=== PATIENT | female | born 1940 | race Caucasian/White ===

== ENCOUNTER 2018-07-25 16:10 | Emergency (ER) | payer MEDICARE, BC ==
--- NOTE | 2018-07-25 16:37 | EDM.PDOC ---
ED HPI GENERAL MEDICAL PROBLEM - General Chief Complaint: ENT Problem Stated Complaint: NOSE BLEED Time Seen by Provider: 07/25/18 16:22 Source of Information: Reports: Patient, Family History Limitations: Reports: No Limitations - History of Present Illness INITIAL COMMENTS - FREE TEXT/NARRATIVE: 78-year-old female presents to the ED with bleeding from the left side of her nose. Patient states she had quite a bad nosebleed 2 days ago that started spontaneously. She was able to get it stopped with direct pressure. Today she felt that there was still plugged up in her nose and she was trying to blow it as well as did place her left small finger into her nose to remove foreign body and it started bleeding again. Was bleeding quite heavily through the nose and also down the back of her throat making her nauseated. She is on baby aspirin once daily no antiplatelet agents. No nasal trauma or surgery. 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 In.) - Related Data Allergies Allergy/AdvReac Type Severity Reaction Status Date / Time erythromycin base Allergy Cannot Verified 07/25/18 16:17 Remember Home Meds: Home Meds Aspirin 81 mg PO DAILY 02/02/18 [History] Calcium Carbonate [Calcium] 1 tab PO DAILY 02/02/18 [History] Cholecalciferol (Vitamin D3) [Vitamin D] 1 tab PO DAILY 02/02/18 [History] Diltiazem HCl [Cartia Xt] 120 mg PO DAILY 02/02/18 [History] Magnesium Oxide/Mag AA Chelate [Magnesium] 300 mg PO DAILY 02/02/18 [History] [place]-3 Fatty Acids [Maxepa] 1 tab PO DAILY 02/02/18 [History] Spironolactone [Aldactone] 12.5 mg PO DAILY 02/02/18 [History] Bacitracin/Polymyxin B Sulfate [Polysporin Ointment] 15 gm TP DAILY #1 tube 10/07 [Rx] Past Medical History HEENT History: Reports: Sinusitis Cardiovascular History: Reports: Hypertension 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: Endocrine/Metabolic History: Reports: Other (See Below) Other Endocrine/Metabolic History: Conn's syndrome - Past Surgical History GI Surgical History: Reports: Cholecystectomy Female Surgical History: Reports: Hysterectomy Social & Family History - Family History Family Medical History: Noncontributory - Tobacco Use Smoking Status *Q: Never Smoker - Caffeine Use Caffeine Use: Reports: None - Recreational Drug Use Recreational Drug Use: No - Living Situation & Occupation Living situation: Reports: Occupation: Retired ED ROS GENERAL - Review of Systems Review Of Systems: See Below Constitutional: Reports: No Symptoms HEENT: Reports: Nosebleed (Left side) Respiratory: Reports: No Symptoms Cardiovascular: Reports: No Symptoms Endocrine: Reports: No Symptoms GI/Abdominal: Reports: Nausea (From swallowed blood.) : Reports: Frequency, Incontinence (Some urge incontinence) Musculoskeletal: Reports: Joint Pain Skin: Reports: No Symptoms (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 The right side looks quite angry but there's been no recent bleeding. There was no ulcerations.) Throat/Mouth: Normal Inspection (She has mild active bleeding from the left anterior nasal septum. The right is angry in appearance but there is been no active bleeding.), Normal Lips, Normal Oropharynx, Other Head Exam: Atraumatic, Normocephalic (Peers to gone the clots out of the back of her throat.) Neck: Normal Inspection, Supple, Non-Tender, Full Range of Motion. No: Lymphadenopathy (L), Lymphadenopathy (R) Respiratory/Chest: No Respiratory Distress, Lungs Clear, Normal Breath Sounds, No Accessory Muscle Use Cardiovascular: Normal Peripheral Pulses, Regular Rate, Rhythm, No Edema, No Gallop, No Murmur, No Rub GI/Abdominal: Guarding Course - Vital Signs Last Recorded V/S: Last Vital Signs Temp 37.1 C 07/25/18 16:17 Pulse 88 07/25/18 16:17 Resp 17 07/25/18 16:17 BP 193/90 H 07/25/18 16:17 Pulse Ox 97 07/25/18 16:17 - Radiology Interpretation Free Text/Narrative:: 78-year-old female attends the ED with bleeding from the left nose for the last hour. She had a quite a bad bleed from the left side of her nose 2 days ago and got stopped on her own. Today she was trying to unplug the nose properly with clotted scab. She tried to blow it out first and it wouldn't come out and she used her left little finger to try and provide out and then bleeding started. On examination she has active bleeding coming from the left anterior nasal septum. He was treated with silver nitrate 6 different applications to try and bring it under control. I will review her in about 10 minutes time. - Re-Assessments/Exams Free Text/Narrative Re-Assessment/Exam: 07/25/18 16:48: On reinspection there is still one area in the very anterior aspect of the nose that was oozing slightly. I cauterized this area and bleeding seemed to come under good control. Patient be discharged to home not to touch her nose or blow out for the next 2 days. She is to apply Polysporin ointment into the nares on each side at bedtime for the next week. After this may use it Wednesdays and Sundays if the humidity in the outside air does not improve. Spring is on the way but is not quite sure yet. She will start to reuse her cool mist humidifier in her bedroom. She will return if there is any further nose bleeding. Departure - Departure Time of Disposition: 16:55 Disposition: Home, Self-Care 01 Condition: Fair Clinical Impression: Anterior epistaxis, Epistaxis - Discharge Information *PRESCRIPTION DRUG MONITORING PROGRAM REVIEWED*: Not Applicable *COPY OF PRESCRIPTION DRUG MONITORING REPORT IN PATIENT STEWART: Not Applicable Prescriptions: Bacitracin/Polymyxin B Sulfate [Polysporin Ointment] 15 gm TP DAILY #1 tube Instructions: Nosebleed, [id number] Referrals: Sukumar Varma MD [Primary Care Provider] - Forms: ED Department Discharge Additional Instructions: Evaluation in the emergency room this afternoon in regards to development of a recurrent left-sided nosebleed. Previous nosebleed 2 days ago. Aspect disruption of scab from the medial septum today that precipitated recurrence of nasal bleeding. Identified on examination the bleeding to be coming from the anterior nasal septum. It was cauterized in 4 different areas to bring the bleeding under control. He met at home is to use Polysporin ointment with aid of a Q-tip into each side of the nose almost filling the nose with the medication every night at bedtime for one week. As the ointment reaches body temperature it will melt and he'll build debris 3 year nose again. Putting a cool mist humidifier back in your bedroom for a couple more weeks would be a good idea as well. Of note you should expect the snuffles for the next hour or so since we cauterized the nose. This is a usually clear drainage with a bit of pink tinge to it due to blood within the floor of the nose. Is required after about an hour to an hour and a half. Return to the ED if any further nosebleeds occur.
== END 2018-07-25 17:10 | disposition home or self-care (01) ==
LOC: JD.ED 16:10
DX: R04.0 Epistaxis (principal); I10 Essential (primary) hypertension; Z88.0 Allergy status to penicillin; Z88.1 Allergy status to other antibiotic agents; Z79.899 Other long term (current) drug therapy
CPT/HCPCS: 30901; 99282; 99283

== ENCOUNTER 2019-04-26 18:19 | Day surgery (SDC) | payer MEDICARE, BC ==
[2019-04-26] MEDS ORDERED: Ondansetron 4 MG/2 ML SDV IVPUSH ONE (19:54)
--- NOTE | 2019-04-26 19:59 | EDM.PDOC ---
ED HPI GENERAL MEDICAL PROBLEM - General Chief Complaint: Abdominal Pain Stated Complaint: UPPER ABDOMINAL PAIN Time Seen by Provider: 04/26/19 18:41 Source of Information: Reports: Patient, Family (Daughter) History Limitations: Reports: No Limitations - History of Present Illness INITIAL COMMENTS - FREE TEXT/NARRATIVE: Mrs. Phelps is a very pleasant 38-year-old woman with a past medical history significant for hypertension, primary aldosteronism, paroxysmal atrial fibrillation, and anxiety, who states that she developed right upper and epigastric pain around 16:00 this afternoon. She is unable to characterize the pain, but states that it is constant. She feels better if she is in a curled up position. She developed some nausea and slight emesis while in the ED. No urinary symptoms. No recent fever. No prior similar symptoms. The patient states that she took an Ativan pill around 16:30, then 2 tablets of Tums around 17:30 to 18:00, without relief of her symptoms. The patient's last food was around noon, when she had some soup at our cafeteria , but she states that she vomited after eating the soup. With respect to the patient's paroxysmal atrial fibrillation, the patient is on diltiazem, but is not on any anticoagulant, following an episode of epistaxis. The patient's PCP is Dr. Sukumar Varma. 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 Right Abdominal Pain Score (Numeric/FACES): 7 - Related Data Allergies Allergy/AdvReac Type Severity Reaction Status Date / Time erythromycin base Allergy Cannot Verified 04/26/19 18:34 Remember Home Meds: Home Meds Aspirin 81 mg PO DAILY 02/02/18 [History] Calcium Carbonate [Calcium] 1 tab PO DAILY 02/02/18 [History] Cholecalciferol (Vitamin D3) [Vitamin D] 1 tab PO DAILY 02/02/18 [History] Diltiazem HCl [Cartia Xt] 120 mg PO DAILY 02/02/18 [History] Magnesium Oxide/Mag AA Chelate [Magnesium] 300 mg PO DAILY 02/02/18 [History] [place]-3 Fatty Acids [Maxepa] 1 tab PO DAILY 02/02/18 [History] Spironolactone [Aldactone] 12.5 mg PO DAILY 02/02/18 [History] Past Medical History Cardiovascular History: Reports: Afib (paroxysmal), Hypertension 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: Psychiatric History: Reports: Anxiety Endocrine/Metabolic History: Reports: Other (See Below) (Primary aldosteronism = Conn syndrome) - Past Surgical History HEENT Surgical History: Reports: Oral Surgery (2 wisdom teeth extracted), Other (See Below) (Excisioni of right branchial cleft cyst) GI Surgical History: Reports: Cholecystectomy (around 2005) Female Surgical History: Reports: D&C (x 1), Hysterectomy (partial) Social & Family History - Family History Family Medical History: Noncontributory - Tobacco Use Smoking Status *Q: Never Smoker - Caffeine Use Caffeine Use: Reports: None - Alcohol Use Alcohol Use History: No - Recreational Drug Use Recreational Drug Use: No - Living Situation & Occupation Living situation: Reports: , with Spouse Occupation: Retired ED ROS GENERAL - Review of Systems Review Of Systems: Comprehensive ROS is negative, except as noted in HPI. ED EXAM, GI/ABD - Physical Exam Exam: See Below Exam Limited By: No Limitations General Appearance: Alert, WD/WN, No Apparent Distress Eyes: Bilateral: Normal Appearance, EOMI Ears: Normal External Exam, Hearing Grossly Normal Nose: Normal Inspection Throat/Mouth: Normal Inspection, Normal Lips, Normal Voice, No Airway Compromise Head: Atraumatic, Normocephalic Neck: Normal Inspection, Full Range of Motion Respiratory/Chest: No Respiratory Distress, Lungs Clear, Normal Breath Sounds, No Accessory Muscle Use Cardiovascular: Normal Peripheral Pulses, Regular Rate, Rhythm, No Edema, No Gallop, No JVD, No Murmur, No Rub GI/Abdominal Exam: Normal Bowel Sounds, Soft, No Organomegaly, No Distention, No Abnormal Bruit, No Mass, Tender (Epigastrium and right lower quadrant only. Nontender elsewhere, including to the right upper quadrant.) (Female) Exam: Deferred Rectal (Female) Exam: Deferred Back Exam: Normal Inspection, Full Range of Motion. No: CVA Tenderness (L), CVA Tenderness (R) Extremities: Normal Inspection, Normal Range of Motion, No Pedal Edema, Normal Capillary Refill Neurological: Alert, Oriented, Normal Cognition, No Motor/Sensory Deficits Psychiatric: Normal Affect Skin Exam: Warm, Dry, Intact, Normal Color, No Rash Course - Vital Signs Last Recorded V/S: Last Vital Signs Temp 36.9 C 04/26/19 18:30 Pulse 86 04/26/19 18:30 Resp 16 04/26/19 18:30 BP 157/83 H 04/26/19 18:30 Pulse Ox 96 04/26/19 18:30 - Orders/Labs/Meds Orders: Active Orders 24 hr Category Date Time Status Patient Status [ADT] Routine ADT 04/27/19 05:43 Active EKG Documentation Completion [RC] ROUTINE Care 04/27/19 06:11 Active NPO Now [Nothing per Oral Now Diet] [DIET] Diet 04/27/19 Breakfast Active Abdomen Pelvis w Cont [CT] Stat Exams 04/26/19 19:54 Taken Lactated Ringers [Ringers, Lactated] 1,000 ml Med 04/26/19 23:00 Active IV ASDIRECTED Remove Patch Med 04/28/19 09:00 Active 1 ea TRDERM DAILY Schedule Procedure [COMM] Stat Oth 04/27/19 05:44 Ordered Medication Orders Lactated Ringer's (Ringers, Lactated) 1,000 mls @ 100 mls/hr IV ASDIRECTED ASIF Last Admin: 04/26/19 23:52 Dose: 100 mls/hr Miscellaneous Information (Remove Patch) 1 ea TRDERM DAILY [facility] Labs: Laboratory Tests 04/26/19 04/26/19 04/26/19 Range/Units 20:02 20:02 20:20 WBC 15.49 H (3.98-10.04) K/mm3 RBC 4.66 (3.98-5.22) M/mm3 Hgb 13.7 (11.2-15.7) gm/dl Hct 42.5 (34.1-44.9) % MCV 91.2 (79.4-94.8) fl MCH 29.4 (25.6-32.2) pg MCHC 32.2 (32.2-35.5) g/dl RDW Std Deviation 44.1 (36.4-46.3) fL Plt Count 292 (182-369) K/mm3 MPV 10.3 (9.4-12.3) fl Neutrophils % (Manual) 88 H (40-60) % Band Neutrophils % 1 (0-10) % Lymphocytes % (Manual) 8 L (20-40) % Atypical Lymphs % 0 % Monocytes % (Manual) 3 (2-10) % Eosinophils % (Manual) 0 L (0.7-5.8) % Basophils % (Manual) 0 L (0.1-1.2) Toxic Granulation Few Platelet Estimate Adequate RBC Morph Comment Normal Sodium 139 (136-145) mEq/L Potassium 4.2 (3.5-5.1) mEq/L Chloride 100 (98-107) mEq/L Carbon Dioxide 28 (21-32) mEq/L Anion Gap 15.2 H (5-15) BUN 22 H (7-18) mg/dL Creatinine 0.9 (0.55-1.02) mg/dL Est Cr Clr Drug Dosing 41.93 mL/min Estimated GFR (MDRD) > 60 (>60) mL/min BUN/Creatinine Ratio 24.4 H (14-18) Glucose 123 H (83-115) mg/dL Calcium 9.6 (8.5-10.1) mg/dL Total Bilirubin 0.6 (0.2-1.0) mg/dL AST 19 (15-37) U/L ALT 27 (14-59) U/L Alkaline Phosphatase 57 (46-116) U/L Total Protein 7.8 (6.4-8.2) g/dl Albumin 3.8 (3.4-5.0) g/dl Globulin 4.0 gm/dL Albumin/Globulin Ratio 1.0 (1-2) Lipase 96 (73-393) U/L Urine Color Yellow (Yellow) Urine Appearance Clear (Clear) Urine pH 6.0 (5.0-8.0) Ur Specific [place] > or = 1.030 (1.005-1.030) Urine Protein Negative (Negative) Urine Glucose (UA) Negative (Negative) Urine Ketones Negative (Negative) Urine Occult Blood Negative (Negative) Urine Nitrite Negative (Negative) Urine Bilirubin Negative (Negative) Urine Urobilinogen 0.2 (0.2-1.0) Ur Leukocyte Esterase Negative (Negative) Urine RBC 0-5 (0-5) /hpf Urine WBC 0-5 (0-5) /hpf Ur Squamous Epith Cells 0-5 (0-5) /hpf Urine Bacteria Few (FEW) /hpf Urine Mucus Moderate H (FEW) /hpf Meds: Medications Generic Name Dose Route Start Last Admin Trade Name Freq PRN Reason Stop Dose Admin Lactated Ringer's 1,000 mls @ 100 mls/hr 04/26/19 23:00 04/26/19 23:52 Ringers, Lactated IV 100 mls/hr ASDIRECTED ASIF Administration Miscellaneous Information 1 ea 04/28/19 09:00 Remove Patch TRDERM DAILY ASIF Discontinued Medications Generic Name Dose Route Start Last Admin Trade Name Shayna PRN Reason Stop Dose Admin Bupivacaine HCl/Epinephrine Bitart Confirm 04/27/19 06:17 Marcaine 0.5%/Epinephrine 1:200,000 Administered 04/27/19 06:18 Dose 50 ml .ROUTE .STK-MED ONE Dexamethasone Confirm 04/27/19 06:15 Dexamethasone Administered 04/27/19 06:16 Dose 20 mg .ROUTE .STK-MED ONE Diatrizoate Meglum/Diatrizoate Sod 90 ml 04/26/19 21:10 Gastrografin 37% PO 04/26/19 21:11 ONETIME ONE Fentanyl Confirm 04/27/19 06:15 Sublimaze Administered 04/27/19 06:16 Dose 250 mcg .ROUTE .STK-MED ONE Sodium Chloride 1,000 mls @ 150 mls/hr 04/26/19 20:00 04/26/19 20:10 Normal Saline IV 150 mls/hr ASDIRECTED ASIF Administration Piperacillin Sod/Tazobactam 100 mls @ 25 mls/hr 04/26/19 22:51 04/26/19 22:57 Sod 4.5 gm/ Sodium Chloride IV 04/27/19 02:50 25 mls/hr ONETIME STA Administration Lidocaine HCl Confirm 04/27/19 06:14 Xylocaine-Mpf 1% Administered 04/27/19 06:15 Dose 4 mls @ as directed .ROUTE .STK-MED ONE Lactated Ringer's Confirm 04/27/19 06:14 Ringers, Lactated Administered 04/27/19 06:15 Dose 1,000 mls @ as directed .ROUTE .STK-MED ONE Iopamidol 100 ml 04/26/19 21:10 Isovue-300 (61%) IVPUSH 04/26/19 21:11 ONETIME ONE Ketorolac Tromethamine Confirm 04/27/19 06:15 Toradol Administered 04/27/19 06:16 Dose 15 mg .ROUTE .STK-MED ONE Lorazepam 0.5 mg 04/26/19 23:47 04/26/19 23:52 Ativan PO 04/26/19 23:48 0.5 mg ONETIME ONE Administration Midazolam HCl Confirm 04/27/19 06:15 Versed 1 Mg/Ml Administered 04/27/19 06:16 Dose 2 mg .ROUTE .STK-MED ONE Ondansetron HCl 4 mg 04/26/19 19:54 04/26/19 20:11 Zofran IVPUSH 04/26/19 19:55 4 mg ONETIME ONE Administration Ondansetron HCl Confirm 04/27/19 06:14 Zofran Administered 04/27/19 06:15 Dose 4 mg .ROUTE .STK-MED ONE Propofol Confirm 04/27/19 06:15 Diprivan 20 Ml Administered 04/27/19 06:16 Dose 400 mg .ROUTE .STK-MED ONE Rocuronium [place] Confirm 04/27/19 06:14 Zemuron Administered 04/27/19 06:15 Dose 50 mg .ROUTE .STK-MED ONE Scopolamine 1.5 mg 04/27/19 06:34 Transderm-Scop TOP 04/27/19 06:35 ONETIME ONE - Re-Assessments/Exams Free Text/Narrative Re-Assessment/Exam: 04/26/19 19:56 While the patient's primary complaint is that of epigastric pain, on examination , she has tenderness to both her epigastrium as well as to her right lower quadrant, raising the possibility of acute appendicitis. I have ordered a workup that includes a lipase level, a urinalysis, and a CT scan of the abdomen and pelvis with oral and IV contrast. In the meantime, she will receive IV fluid and IV Zofran. The patient declined an offer for pain medication, but will let her nurse know if she changes her mind. 04/26/19 22:41 Contacted by the [facility] Radiologist at 22:40, who informed me that the patient has acute appendicitis. The appendix is retrocecal. There is no evidence of perforation. Formal report pending. 04/26/19 22:43 The patient's CBC is remarkable for a WBC count elevated at 15.49, but with 1% bandemia and 88% neutrophilia. The remainder of her CBC is unremarkable. Her CMP is remarkable for an anion gap slightly elevated at 15.2, but with a bicarbonate normal at 28. Her BUN is slightly elevated at 22, with a creatinine normal at 0.9. Her blood glucose is slightly elevated at 123. The remainder of her CMP is unremarkable. Her lipase is within normal limits at 96. Her urinalysis is unremarkable. 04/26/19 22:49 CT of the abdomen and pelvis with oral and IV contrast is read by [facility] as: 1. Acute appendicitis. There is no sign of appendiceal perforation or abscess. The appendix has a retrocecal location. 2. Diverticulum in the colon but no sign of acute diverticulitis. Case discussed with Dr. Pagan at 22:47. He would like us to place the patient into observation. He would like her to be started on Zosyn, and receive LR at 100 mL per hour. She is to be kept NPO. He will see her in the morning, with the intention of taking her to the OR at that time. Departure - Departure Time of Disposition: 22:55 Disposition: Refer to Observation Condition: Good Clinical Impression: Acute appendicitis - Discharge Information *PRESCRIPTION DRUG MONITORING PROGRAM REVIEWED*: Not Applicable *COPY OF PRESCRIPTION DRUG MONITORING REPORT IN PATIENT STEWART: Not Applicable Sepsis Event Note - Evaluation Sepsis Screening Result: No Definite Risk - Focused Exam Date Exam was Performed: 04/27/19 Time Exam was Performed: 06:47 - My Orders Last 24 Hours: My Active Orders 04/26/19 19:54 Abdomen Pelvis w Cont [CT] Stat 04/26/19 23:00 Lactated Ringers [Ringers, Lactated] 1,000 ml IV ASDIRECTED 04/27/19 05:43 Patient Status [ADT] Routine 04/27/19 05:44 Schedule Procedure [COMM] Stat 04/27/19 Breakfast NPO Now [Nothing per Oral Now Diet] [DIET] - Assessment/Plan Last 24 Hours: My Active Orders 04/26/19 19:54 Abdomen Pelvis w Cont [CT] Stat 04/26/19 23:00 Lactated Ringers [Ringers, Lactated] 1,000 ml IV ASDIRECTED 04/27/19 05:43 Patient Status [ADT] Routine 04/27/19 05:44 Schedule Procedure [COMM] Stat 04/27/19 Breakfast NPO Now [Nothing per Oral Now Diet] [DIET]
[2019-04-26] MEDS ORDERED: Sodium Chloride 0.9% 1,000 ML IV SCH (20:00)
[2019-04-26] MEDS ORDERED: Diatrizoate Meglumine/Diatrizoate Sodium 37% 120 ML Bottle PO ONE (21:10)
[2019-04-26] MEDS ORDERED: Iopamidol 612 MG/ML 100 ML Bottle IVPUSH ONE (21:10)
[2019-04-26] MEDS ORDERED: Piperacillin/Tazobactam 4.5 GM in Sodium Chloride 0.9% 100 ML IV STA (22:51)
[2019-04-26] MEDS ORDERED: LORazepam 0.5 MG Tab PO ONE (23:47)
[2019-04-26] MEDS: Lactated Ringers 1,000 ML IV SCH (23:52)
[2019-04-27] MEDS ORDERED: Ondansetron 4 MG/2 ML SDV ONE (06:14)
[2019-04-27] MEDS ORDERED: Lactated Ringers 1,000 ML ONE (06:14)
[2019-04-27] MEDS ORDERED: Lidocaine 1% 4 ML ONE (06:14)
[2019-04-27] MEDS ORDERED: Rocuronium 50 MG/5 ML Vial ONE (06:14)
[2019-04-27] MEDS ORDERED: fentaNYL 250 MCG/5 ML SDV ONE (06:15)
[2019-04-27] MEDS ORDERED: Midazolam 1 MG/ML 2 ML SDV ONE (06:15)
[2019-04-27] MEDS ORDERED: Dexamethasone 4 MG/ML 5 ML MDV ONE (06:15)
[2019-04-27] MEDS ORDERED: Ketorolac 15 MG/ML SDV ONE (06:15)
[2019-04-27] MEDS ORDERED: Propofol 200 MG/20 ML SDV ONE (06:15)
--- NOTE | 2019-04-27 06:15 | PCM.HP.2 ---
H&P History of Present Illness - General Date of Service: 04/27/19 Admit Problem/Dx: Admission Diagnosis/Problem Admission Diagnosis/Problem Appendicitis Source of Information: Patient History Limitations: Reports: No Limitations - History of Present Illness Onset of Symptoms: Reports: Unknown/Unsure Duration of Symptoms: Reports: Day(s): Location: Reports: Abdomen Quality: Reports: Ache, Pressure Severity: Moderate Improves with: Reports: Rest Context: Reports: Other Associated Symptoms: Reports: Nausea/Vomiting Right Abdominal Pain Score (Numeric/FACES): 7 - Related Data Allergies/Adverse Reactions: Allergies Allergy/AdvReac Type Severity Reaction Status Date / Time erythromycin base Allergy Cannot Verified 04/26/19 18:34 Remember Home Medications: Home Meds Aspirin 81 mg PO DAILY 02/02/18 [History] Calcium Carbonate [Calcium] 1 tab PO DAILY 02/02/18 [History] Cholecalciferol (Vitamin D3) [Vitamin D] 1 tab PO DAILY 02/02/18 [History] Diltiazem HCl [Cartia Xt] 120 mg PO DAILY 02/02/18 [History] Magnesium Oxide/Mag AA Chelate [Magnesium] 300 mg PO DAILY 02/02/18 [History] [place]-3 Fatty Acids [Maxepa] 1 tab PO DAILY 02/02/18 [History] Spironolactone [Aldactone] 12.5 mg PO DAILY 02/02/18 [History] Past Medical History HEENT History: Reports: Sinusitis Cardiovascular History: Reports: Afib (paroxysmal), Hypertension 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: Psychiatric History: Reports: Anxiety Endocrine/Metabolic History: Reports: Other (See Below) (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 - Past Surgical History HEENT Surgical History: Reports: Oral Surgery (2 wisdom teeth extracted), Other (See Below) (Excisioni of right branchial cleft cyst) GI Surgical History: Reports: Cholecystectomy (around 2005) Female Surgical History: Reports: D&C (x 1), Hysterectomy (partial) Social & Family History - Family History Family Medical History: Noncontributory - Tobacco Use Smoking Status *Q: Never Smoker - Caffeine Use Caffeine Use: Reports: None - Recreational Drug Use Recreational Drug Use: No - Living Situation & Occupation Living situation: Reports: , with Spouse Occupation: Retired H&P Review of Systems - Review of Systems: Review Of Systems: See Below General: Reports: No Symptoms HEENT: Reports: No Symptoms Pulmonary: Reports: No Symptoms Cardiovascular: Reports: No Symptoms Gastrointestinal: Reports: Abdominal Pain Genitourinary: Reports: No Symptoms Musculoskeletal: Reports: No Symptoms Skin: Reports: No Symptoms Psychiatric: Reports: No Symptoms Neurological: Reports: No Symptoms Hematologic/Lymphatic: Reports: No Symptoms Immunologic: Reports: No Symptoms Exam - Exam Exam: See Below - Vital Signs Vital Signs: Last Vital Signs Temp 36.9 C 04/26/19 18:30 Pulse 86 04/26/19 18:30 Resp 16 04/26/19 18:30 BP 157/83 H 04/26/19 18:30 Pulse Ox 96 04/26/19 18:30 Weight: 58.06 kg - Exam General: Alert, Oriented, Cooperative HEENT: Conjunctiva Clear Neck: Supple, Trachea Midline Lungs: Clear to Auscultation Cardiovascular: Regular Rate, Regular Rhythm GI/Abdominal Exam: Soft, Non-Tender, No Distention (Female) Exam: Deferred Rectal (Female) Exam: Deferred Extremities: Normal Inspection Peripheral Pulses: 2+: Radial (R) Skin: Warm, Dry Neuro Extensive - Mental Status: Alert, Oriented x3 Neuro Extensive - Motor, Sensory, Reflexes: Normal Gait Psychiatric: Alert, Normal Affect, Normal Mood - Patient Data Lab Results Last 24 hrs: Laboratory Results - last 24 hr 04/26/19 04/26/19 04/26/19 Range/Units 20:02 20:02 20:20 WBC 15.49 H (3.98-10.04) K/mm3 RBC 4.66 (3.98-5.22) M/mm3 Hgb 13.7 (11.2-15.7) gm/dl Hct 42.5 (34.1-44.9) % MCV 91.2 (79.4-94.8) fl MCH 29.4 (25.6-32.2) pg MCHC 32.2 (32.2-35.5) g/dl RDW Std Deviation 44.1 (36.4-46.3) fL Plt Count 292 (182-369) K/mm3 MPV 10.3 (9.4-12.3) fl Neutrophils % (Manual) 88 H (40-60) % Band Neutrophils % 1 (0-10) % Lymphocytes % (Manual) 8 L (20-40) % Atypical Lymphs % 0 % Monocytes % (Manual) 3 (2-10) % Eosinophils % (Manual) 0 L (0.7-5.8) % Basophils % (Manual) 0 L (0.1-1.2) Toxic Granulation Few Platelet Estimate Adequate RBC Morph Comment Normal Sodium 139 (136-145) mEq/L Potassium 4.2 (3.5-5.1) mEq/L Chloride 100 (98-107) mEq/L Carbon Dioxide 28 (21-32) mEq/L Anion Gap 15.2 H (5-15) BUN 22 H (7-18) mg/dL Creatinine 0.9 (0.55-1.02) mg/dL Est Cr Clr Drug Dosing 41.93 mL/min Estimated GFR (MDRD) > 60 (>60) mL/min BUN/Creatinine Ratio 24.4 H (14-18) Glucose 123 H (83-115) mg/dL Calcium 9.6 (8.5-10.1) mg/dL Total Bilirubin 0.6 (0.2-1.0) mg/dL AST 19 (15-37) U/L ALT 27 (14-59) U/L Alkaline Phosphatase 57 (46-116) U/L Total Protein 7.8 (6.4-8.2) g/dl Albumin 3.8 (3.4-5.0) g/dl Globulin 4.0 gm/dL Albumin/Globulin Ratio 1.0 (1-2) Lipase 96 (73-393) U/L Urine Color Yellow (Yellow) Urine Appearance Clear (Clear) Urine pH 6.0 (5.0-8.0) Ur Specific [place] > or = 1.030 (1.005-1.030) Urine Protein Negative (Negative) Urine Glucose (UA) Negative (Negative) Urine Ketones Negative (Negative) Urine Occult Blood Negative (Negative) Urine Nitrite Negative (Negative) Urine Bilirubin Negative (Negative) Urine Urobilinogen 0.2 (0.2-1.0) Ur Leukocyte Esterase Negative (Negative) Urine RBC 0-5 (0-5) /hpf Urine WBC 0-5 (0-5) /hpf Ur Squamous Epith Cells 0-5 (0-5) /hpf Urine Bacteria Few (FEW) /hpf Urine Mucus Moderate H (FEW) /hpf Result Diagrams: 01/06/20 20:02 04/26/19 20:02 Sepsis Event Note - Evaluation Sepsis Screening Result: No Definite Risk - Focused Exam Vital Signs: Vital Signs Temp Pulse Resp BP Pulse Ox 04/26/19 18:30 36.9 C 86 16 157/83 H 96 Date Exam was Performed: 04/27/19 Time Exam was Performed: 06:12 *Q Meaningful Use (ADM) - VTE Risk Assess *Q Each Risk Factor Represents 3 Points: Age 75 Years or Greater Total Score 3 Point Risk Factors: 3 Problem List Initiated/Reviewed/Updated: Yes Orders Last 24hrs: Active Orders 24 hr Category Date Time Status Patient Status [ADT] Routine ADT 04/27/19 05:43 Active EKG Documentation Completion [RC] ROUTINE Care 04/27/19 06:11 Active NPO Now [Nothing per Oral Now Diet] [DIET] Diet 04/27/19 Breakfast Active Abdomen Pelvis w Cont [CT] Stat Exams 04/26/19 19:54 Taken Lactated Ringers [Ringers, Lactated] 1,000 ml Med 04/26/19 23:00 Active IV ASDIRECTED Schedule Procedure [COMM] Stat Oth 04/27/19 05:44 Ordered Medication Orders Lactated Ringer's (Ringers, Lactated) 1,000 mls @ 100 mls/hr IV ASDIRECTED [facility] Last Admin: 04/26/19 23:52 Dose: 100 mls/hr Assessment/Plan Comment:: Acute appendicitis identified on CT- plan for laparoscopic appendectomy. - Mortality Measure Prognosis:: Good
[2019-04-27] MEDS ORDERED: Bupivacaine 0.5%/EPINEPHrine 1:200,000 50 ML MDV ONE (06:17)
[2019-04-27] MEDS ORDERED: Scopolamine 1.5 MG Transdermal Patch TOP ONE (06:34)
--- NOTE | 2019-04-27 07:22 | CT ---
CT abdomen and pelvis Technique: Multiple axial sections were obtained from above the dome of the diaphragm inferiorly through the pubic symphysis. Intravenous and oral contrast was utilized. Delayed images were also obtained through the bladder. Comparison: Previous MRI abdomen exam performed as an aortogram study dated 08/04/17. Findings: Appendix is dilated. Findings felt compatible with early appendicitis. Other findings: Visualized lung bases show nothing acute. Liver contains no focal abnormality. Small hiatal hernia is noted. Spleen appears within normal limits. Adrenal glands show no nodule. Extrarenal pelvis is noted within both kidneys which is felt to be a normal variant. Small cortical lesion is noted within the left kidney measuring 5 mm which is too small to characterize. Second cortical lesion noted within the upper left kidney measuring 5 mm which is too small to characterize. Both these findings are statistically most likely due to small cysts. Pancreas appears within normal limits. Aorta shows no aneurysm. No retroperitoneal adenopathy or mesenteric abnormalities are seen. No pelvic mass or adenopathy is seen. Diverticuli are seen within the sigmoid colon without evidence of diverticulitis. No free fluid is identified. Delayed images show contrast within the distal ureters and within the bladder. Bone window settings were reviewed which show degenerative change within the spine which is most severe at L4-L5 and L5-S1 with disc space narrowing and vacuum phenomena. Impression: 1. Enlarged appendix compatible with early appendicitis. 2. Other findings which are believed to be incidental as noted above. No other acute abnormality is appreciated on CT study of the abdomen and pelvis. Diagnostic code #5 This report was dictated in [place] Standard Time I agree with preliminary report from [facility], finalized on 04/26/19, 11:47 PM Central Time
[2019-04-27] MEDS ORDERED: ePHEDrine/Normal Saline 25 MG/5 ML Syringe ONE (07:25)
--- NOTE | 2019-04-27 07:30 | PCM.PREANE ---
Preanesthetic Assessment - Procedure Proposed Procedure: Laparoscopic Appendectomy - Anesthesia/Transfusion/Family Hx Anesthesia History: Prior Anesthesia Reaction Type of Anesthesia Reaction: Excessive Nausea/Vomiting Family History of Anesthesia Reaction: No - Review of Systems General: No Symptoms Pulmonary: No Symptoms Cardiovascular: Palpitations, Other (History of A fib. Palpatations. ) Gastrointestinal: Abdominal Pain, Nausea, Vomiting (Friday evening. ) Neurological: No Symptoms Other: Reports: None (Conns syndrome), Anxiety - Physical Assessment NPO Status Date: 04/26/19 NPO Status Time: 23:00 Vital Signs: Last Vital Signs Temp 36.9 C 04/26/19 18:30 Pulse 86 04/26/19 18:30 Resp 16 04/26/19 18:30 BP 157/83 H 04/26/19 18:30 Pulse Ox 96 04/26/19 18:30 Height: 1.6 m Weight: 58.06 kg ASA Class: 3 Mental Status: Alert & Oriented x3 Airway Class: Mallampati = 3 Dentition: Reports: Broken Tooth/Teeth Thyro-Mental Finger Breadths: 1 Mouth Opening Finger Breadths: 3 ROM/Head Extension: Full Lungs: Clear to Auscultation, Normal Respiratory Effort Cardiovascular: Regular Rate, Regular Rhythm - Lab Values: Laboratory Last Values WBC 15.49 K/mm3 (3.98-10.04) H 04/26/19 20:02 RBC 4.66 M/mm3 (3.98-5.22) 04/26/19 20:02 Hgb 13.7 gm/dl (11.2-15.7) 04/26/19 20:02 Hct 42.5 % (34.1-44.9) 04/26/19 20: MCV 91.2 fl (79.4-94.8) 04/26/19 20:02 MCH 29.4 pg (25.6-32.2) 04/26/19 20:02 MCHC 32.2 g/dl (32.2-35.5) 04/26/19 20:02 RDW Std Deviation 44.1 fL (36.4-46.3) 04/26/19 20:02 Plt Count 292 K/mm3 (182-369) 04/26/19 20:02 MPV 10.3 fl (9.4-12.3) 04/26/19 20:02 Neutrophils % (Manual) 88 % (40-60) H 04/26/19 20:02 Band Neutrophils % 1 % (0-10) 04/26/19 20:02 Lymphocytes % (Manual) 8 % (20-40) L 04/26/19 20:02 Atypical Lymphs % 0 % 04/26/19 20:02 Monocytes % (Manual) 3 % (2-10) 04/26/19 20:02 Eosinophils % (Manual) 0 % (0.7-5.8) L 04/26/19 20:02 Basophils % (Manual) 0 (0.1-1.2) L 04/26/19 20:02 Toxic Granulation Few 04/26/19 20:02 Platelet Estimate Adequate 04/26/19 20: RBC Morph Comment Normal 04/26/19 20: Sodium 139 mEq/L (136-145) 04/26/19 20:02 Potassium 4.2 mEq/L (3.5-5.1) 04/26/19 20:02 Chloride 100 mEq/L (98-107) 04/26/19 20:02 Carbon Dioxide 28 mEq/L (21-32) 04/26/19 20:02 Anion Gap 15.2 (5-15) H 04/26/19 20:02 BUN 22 mg/dL (7-18) H 04/26/19 20:02 Creatinine 0.9 mg/dL (0.55-1.02) 04/26/19 20:02 Est Cr Clr Drug Dosing 41.93 mL/min 04/26/19 20:02 Estimated GFR (MDRD) > 60 mL/min (>60) 04/26/19 20: BUN/Creatinine Ratio 24.4 (14-18) H 04/26/19 20:02 Glucose 123 mg/dL (83-115) H 04/26/19 20:02 Calcium 9.6 mg/dL (8.5-10.1) 04/26/19 20:02 Total Bilirubin 0.6 mg/dL (0.2-1.0) 04/26/19 20:02 AST 19 U/L (15-37) 04/26/19 20:02 ALT 27 U/L (14-59) 04/26/19 20:02 Alkaline Phosphatase 57 U/L (46-116) 04/26/19 20:02 Total Protein 7.8 g/dl (6.4-8.2) 04/26/19 20:02 Albumin 3.8 g/dl (3.4-5.0) 04/26/19 20:02 Globulin 4.0 gm/dL 04/26/19 20:02 Albumin/Globulin Ratio 1.0 (1-2) 04/26/19 20:02 Lipase 96 U/L (73-393) 04/26/19 20:02 Urine Color Yellow (Yellow) 04/26/19 20:20 Urine Appearance Clear (Clear) 04/26/19 20:20 Urine pH 6.0 (5.0-8.0) 04/26/19 20:20 Ur Specific [place] > or = 1.030 (1.005-1.030) 04/26/19 20:20 Urine Protein Negative (Negative) 04/26/19 20:20 Urine Glucose (UA) Negative (Negative) 04/26/19 20:20 Urine Ketones Negative (Negative) 04/26/19 20:20 Urine Occult Blood Negative (Negative) 04/26/19 20:20 Urine Nitrite Negative (Negative) 04/26/19 20:20 Urine Bilirubin Negative (Negative) 04/26/19 20:20 Urine Urobilinogen 0.2 (0.2-1.0) 04/26/19 20:20 Ur Leukocyte Esterase Negative (Negative) 04/26/19 20:20 Urine RBC 0-5 /hpf (0-5) 04/26/19 20:20 Urine WBC 0-5 /hpf (0-5) 04/26/19 20:20 Ur Squamous Epith Cells 0-5 /hpf (0-5) 04/26/19 20:20 Urine Bacteria Few /hpf (FEW) 04/26/19 20:20 Urine Mucus Moderate /hpf (FEW) H 04/26/19 20:20 - Allergies Allergies/Adverse Reactions: Allergies Allergy/AdvReac Type Severity Reaction Status Date / Time erythromycin base Allergy Cannot Verified 04/26/19 18:34 Remember - Anesthesia Plan Pre-Op Medication Ordered: Anxiolytic, Other (Scopalamine patch) - Acknowledgements Anesthesia Type Planned: General Anesthesia Pt an Appropriate Candidate for the Planned Anesthesia: Yes Alternatives and Risks of Anesthesia Discussed w Pt/Guardian: Yes Pt/Guardian Understands and Agrees with Anesthesia Plan: Yes PreAnesthesia Questionnaire HEENT History: Reports: Sinusitis Cardiovascular History: Reports: Afib (paroxysmal), Hypertension 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: Psychiatric History: Reports: Anxiety Endocrine/Metabolic History: Reports: Other (See Below) (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 - Past Surgical History HEENT Surgical History: Reports: Oral Surgery (2 wisdom teeth extracted), Other (See Below) (Excisioni of right branchial cleft cyst) GI Surgical History: Reports: Cholecystectomy (around 2005) Female Surgical History: Reports: D&C (x 1), Hysterectomy (partial) - SUBSTANCE USE Smoking Status *Q: Never Smoker Recreational Drug Use History: No - HOME MEDS Home Medications: Home Meds Aspirin 81 mg PO DAILY 02/02/18 [History] Calcium Carbonate [Calcium] 1 tab PO DAILY 02/02/18 [History] Cholecalciferol (Vitamin D3) [Vitamin D] 1 tab PO DAILY 02/02/18 [History] Diltiazem HCl [Cartia Xt] 120 mg PO DAILY 02/02/18 [History] Magnesium Oxide/Mag AA Chelate [Magnesium] 300 mg PO DAILY 02/02/18 [History] [place]-3 Fatty Acids [Maxepa] 1 tab PO DAILY 02/02/18 [History] Spironolactone [Aldactone] 12.5 mg PO DAILY 02/02/18 [History] - CURRENT (IN HOUSE) MEDS Current Meds: Current Medications Lactated Ringer's (Ringers, Lactated) 1,000 mls @ 100 mls/hr IV [facility] Last Admin: 04/26/19 23:52 Dose: 100 mls/hr Miscellaneous Information (Remove Patch) 1 ea TRDERM [facility]ILY [facility] Discontinued Medications Bupivacaine HCl/Epinephrine Bitart (Marcaine 0.5%/Epinephrine 1:200,000) Confirm Administered Dose 50 ml .ROUTE .STK-MED ONE Stop: 04/27/19 06:18 Dexamethasone (Dexamethasone) Confirm Administered Dose 20 mg .ROUTE .STK-MED ONE Stop: 04/27/19 06:16 Diatrizoate Meglum/Diatrizoate Sod (Gastrografin 37%) 90 ml PO ONETIME ONE Stop: 04/26/19 21:11 Fentanyl (Sublimaze) Confirm Administered Dose 250 mcg .ROUTE .ST-MED ONE Stop: 04/27/19 06:16 Sodium Chloride (Normal Saline) 1,000 mls @ 150 mls/hr IV ASDIRECTED ASIF Last Admin: 04/26/19 20:10 Dose: 150 mls/hr Piperacillin Sod/Tazobactam (Sod 4.5 gm/ Sodium Chloride) 100 mls @ 25 mls/hr IV ONETIME STA Stop: 04/27/19 02:50 Last Admin: 04/26/19 22:57 Dose: 25 mls/hr Lidocaine HCl (Xylocaine-Mpf 1%) Confirm Administered Dose 4 mls @ as directed .ROUTE .ST-MED ONE Stop: 04/27/19 06:15 Lactated Ringer's (Ringers, Lactated) Confirm Administered Dose 1,000 mls @ as directed .ROUTE .ST-MED ONE Stop: 04/27/19 06:15 Cefoxitin Sodium (Mefoxin In Dextrose,Iso-Osm 2 Gm/50 Ml) Confirm Administered Dose 50 mls @ as directed .ROUTE .[facility]-MED ONE Stop: 04/27/19 07:13 Iopamidol (Isovue-300 (61%)) 100 ml IVPUSH ONETIME ONE Stop: 04/26/19 21:11 Ketorolac Tromethamine (Toradol) Confirm Administered Dose 15 mg .ROUTE .ST- MED ONE Stop: 04/27/19 06:16 Lorazepam (Ativan) 0.5 mg PO ONETIME ONE Stop: 04/26/19 23:48 Last Admin: 04/26/19 23:52 Dose: 0.5 mg Midazolam HCl (Versed 1 Mg/Ml) Confirm Administered Dose 2 mg .ROUTE .ST-MED ONE Stop: 04/27/19 06:16 Ondansetron HCl (Zofran) 4 mg IVPUSH ONETIME ONE Stop: 04/26/19 19:55 Last Admin: 04/26/19 20:11 Dose: 4 mg Ondansetron HCl (Zofran) Confirm Administered Dose 4 mg .ROUTE .ST-MED ONE Stop: 04/27/19 06:15 Propofol (Diprivan 20 Ml) Confirm Administered Dose 400 mg .ROUTE .ST-MED ONE Stop: 04/27/19 06:16 Rocuronium [place] (Zemuron) Confirm Administered Dose 50 mg .ROUTE .STK-MED ONE Stop: 04/27/19 06:15 Scopolamine (Transderm-Scop) 1.5 mg TOP ONETIME ONE Stop: 04/27/19 06:35
--- NOTE | 2019-04-27 07:45 | PCM.PRNOTE ---
- Free Text/Narrative Note: Operative Report Operation: laparoscopic appendectomy Date: 04/27/2019 Attending Surgeon: Dru Pagan MD Indication for Surgery: appendicitis Preoperative antibiotics: cefoxitin VTE prophylaxis: SCDs Estimated Blood Loss: 5 cc Findings: Adhesions from ascending colon to anterior abdominal wall, with omentum adhesed to the right meso colon. Appendix appeared to have abnormal girth but did not seem inflamed. Detailed Report: The patient underwent general endotracheal anesthesia after being placed supine on the operating table and initial timeout. The left arm was tucked at the patients side. The abdomen was prepped and draped in sterile fashion. A pre- incision timeout was performed confirming the patients identity and the operation to be performed. A Veress needle was inserted into the abdominal cavity below the left costal margin along the mid-clavicular line. The abdomen was insufflated with CO2 to 15 mm Hg. Gas was aspirated below the umbilicus with a syringe in order to ensure safe placement of a 12 mm bladed laparoscopic port. The 5mm 30 degree laparoscope was then inserted and viscera inspected. The appendix appeared engorged but not grossly inflamed. Two additional 5 mm ports were placed under direct vision with the laparoscope one along the midline superior to the pubic symphysis and one in the left lower quadrant. The laparoscope was then placed through the left lower quadrant port for optimal visualization. The distal portion of the appendix was grasped with a laparoscopic Miguel clamp and retracted anteriorly and inferiorly. The [place] grasper was used to create a window in the mesoappendix where the appendix was seen coming off the cecum. A 45 mm laparoscopic stapler with white cartridge was used to divide the appendix flush with the base of the cecum. An additional staple fire was used to divide the mesentery supplying the appendix. This bled for a bit, but hemostasis was achieved with applied monopolar energy using the hook. The specimen was then placed in an Endocatch bag and removed through the umbilical port. The dissection field was irrigated and inspected and appeared hemostatic. The larger infraumbilical port was closed at the level of the fascia with vicryl suture using the PMI laparoscopic suture passer. Pneumoperitoneum was then released. All skin incisions were then closed with placement of subcuticular vicryl suture and dressed with dermabond. A total of 15 cc 0.5 % marcaine with epinephrine was used for local anesthesia at the incision sites. The patient tolerated the operation well, was extubated in the operating room and transferred to the PACU for routine post-anesthesia care. Dru Pagan MD General Surgery
[2019-04-27] MEDS ORDERED: fentaNYL 100 MCG/2 ML SDV IVPUSH PRN (08:04)
[2019-04-27] MEDS ORDERED: HYDROmorphone 0.5 MG/0.5 ML Syringe IVPUSH PRN (08:04)
[2019-04-27] MEDS ORDERED: Ondansetron 4 MG/2 ML SDV IVPUSH PRN (08:04)
--- NOTE | 2019-04-27 08:09 | PCM.POSTAN ---
POST ANESTHESIA ASSESSMENT - MENTAL STATUS Mental Status: Alert, Oriented - VITAL SIGNS Vital Signs: Last Vital Signs Temp 98.4 F 04/26/19 18:30 Pulse 86 04/26/19 18:30 Resp 16 04/26/19 18:30 BP 157/83 H 04/26/19 18:30 Pulse Ox 96 04/26/19 18:30 99% 17 88 97.8 107/83 - RESPIRATORY Respiratory Status: Respiratory Rate WNL, Airway Patent, O2 Saturation Stable, Supplemental Oxygen - CARDIOVASCULAR CV Status: Pulse Rate WNL, Blood Pressure Stable - GASTROINTESTINAL GI Status: No Symptoms - PAIN Pain Score: 6 (medicated) - POST OP HYDRATION Hydration Status: Adequate & Stable
[2019-04-27] MEDS: Acetaminophen 325 MG Tab PO ONE ×2 (09:19→13:25)
[2019-04-27] MEDS: Lactated Ringers 1,000 ML IV SCH (10:31)
== END 2019-04-27 14:45 | disposition home or self-care (01) ==
LOC: JD.ED 18:19 → JD.SDS 04-27 05:45
PROVIDERS: ATTEND Surgery
DX: D49.0 Neoplasm of unspecified behavior of digestive system (principal); K35.30 Acute appendicitis with localized peritonitis, without perforation or gangrene; I10 Essential (primary) hypertension; I48.0 Paroxysmal atrial fibrillation; F41.9 Anxiety disorder, unspecified; E26.09 Other primary hyperaldosteronism; Z88.1 Allergy status to other antibiotic agents; Z79.82 Long term (current) use of aspirin; Z79.899 Other long term (current) drug therapy
CPT/HCPCS: 36415; 44970; 74177; 80053; 81001; 83690; 85007; 85027; 93005; 96361; 96365; 96375; 99285; A9270; J0694; J1100; J1885; J2001; J2250; J2405; J2543; J2704; J3010; J3490; J7030; J7050; J7120; Q9963; 00840

== ENCOUNTER 2019-11-09 09:27 | Day surgery (SDC) | payer MEDICARE, BC ==
[~2019-11-09 09:27] MED LIST: Cefuroxime 10 MG/ML SYRINGE EYERT SCH; Lidocaine 1% PF 2 ML SDV INJECT SCH; Pilocarpine 4% Ophth Soln 15 ML Bot EYERT SCH
[2019-11-09] MEDS: Polymyxin B/Trimethoprim 10 ML Bottle EYERT SCH ×3 (10:06→11:47)
[2019-11-09] MEDS: Brimonidine 0.2% Ophth Soln 5 ML Bottle EYERT SCH ×3 (10:20→11:47)
[2019-11-09] MEDS: Phenylephrine 2.5% Ophth Soln 2 ML Bot EYERT SCH ×5 (10:26→11:29)
[2019-11-09] MEDS: Tropicamide 1% Ophth Soln 15 ML Bottle EYERT SCH ×4 (10:35→11:13)
--- NOTE | 2019-11-09 10:44 | PCM.PREANE ---
Preanesthetic Assessment - Procedure Proposed Procedure: Right Eye Cataract Extraction - Anesthesia/Transfusion/Family Hx Anesthesia History: Prior Anesthesia Reaction Type of Anesthesia Reaction: Excessive Nausea/Vomiting Family History of Anesthesia Reaction: No Transfusion History: Prior Transfusion Without Reaction Intubation History: Unknown - Review of Systems General: No Symptoms Pulmonary: No Symptoms Cardiovascular: No Symptoms (HTN) Gastrointestinal: No Symptoms, Constipation (occasional) Neurological: No Symptoms (Vertigo) Other: Reports: None (Decreased kidney function), Sinus Problem (chronic sinus issues), Anxiety - Physical Assessment NPO Status Date: 11/08/19 NPO Status Time: 21:30 Vital Signs: HR: 74 B/P: 138/78 Resp: 16 Temp: 97.6 Sat: 94% Height: 1.63 m Weight: 58.513 kg ASA Class: 2 Mental Status: Alert & Oriented x3 Airway Class: Mallampati = 2 Dentition: Reports: Normal Dentition, Caries Thyro-Mental Finger Breadths: 3 Mouth Opening Finger Breadths: 3 ROM/Head Extension: Full Lungs: Clear to Auscultation, Normal Respiratory Effort Cardiovascular: Regular Rate, Regular Rhythm, No Murmurs - Allergies Allergies/Adverse Reactions: Allergies Allergy/AdvReac Type Severity Reaction Status Date / Time erythromycin base Allergy Cannot Verified 11/08/19 10:56 Remember - Anesthesia Plan Pre-Op Medication Ordered: None - Acknowledgements Anesthesia Type Planned: MAC Pt an Appropriate Candidate for the Planned Anesthesia: Yes Alternatives and Risks of Anesthesia Discussed w Pt/Guardian: Yes Pt/Guardian Understands and Agrees with Anesthesia Plan: Yes PreAnesthesia Questionnaire HEENT History: Reports: Sinusitis Cardiovascular History: Reports: Afib (paroxysmal), Hypertension [employer]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: Psychiatric History: Reports: Anxiety Endocrine/Metabolic History: Reports: Other (See Below) (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 - Past Surgical History HEENT Surgical History: Reports: Oral Surgery (2 wisdom teeth extracted), Other (See Below) (Excisioni of right branchial cleft cyst) GI Surgical History: Reports: Cholecystectomy (around 2005) Female Surgical History: Reports: D&C (x 1), Hysterectomy (partial) - HOME MEDS Home Medications: Home Meds Spironolactone [Aldactone] 25 mg PO DAILY 02/02/18 [History] dilTIAZem HCL [Cartia Xt] 120 mg PO DAILY 02/02/18 [History] Glucosam/Chond-Msm1/C/Mike/Bor [[place]-Twxcw-MAV Complex Cplt] 1 tab PO DAILY 11/08/19 [History] - CURRENT (IN HOUSE) MEDS Current Meds: Current Medications Brimonidine Tartrate (Alphagan 0.2% Ophth Soln) 0 ml EYERT ASDIRECTED ASIF Stop: 11/09/19 18:00 Last Admin: 11/09/19 10:20 Dose: 1 drop Documented by: Cefuroxime Sodium (Zinacef) 0 mg EYERT ASDIRECTED [facility] Stop: 11/09/19 18:00 Lidocaine HCl (Xylocaine-Mpf 1%) 0 ml INJECT ASDIRECTED [facility] Stop: 11/09/19 18:00 Phenylephrine HCl ([place]el-Synephrine 2.5% Ophth Soln) 0 ml EYERT ASDIRECTED AS[facility] Stop: 11/09/19 18:00 Last Admin: 11/09/19 10:26 Dose: 1 drop Documented by: Pilocarpine HCl (Pilocar 4% Ophth Soln) 0 ml EYERT ASDIRECTED AS[facility] Stop: 11/09/19 18:00 Polymyxin/Trimethoprim Sulfate (Polytrim Ophth Soln) 0 ml EYERT ASDIRECTED ASIF Stop: 11/09/19 18:00 Last Admin: 11/09/19 10:06 Dose: 1 drop Documented by: Tetracaine HCl (Tetracaine 0.5% Steri-Unit Miryam) 0 ml EYEBOTH ASDIRECTED ASIF Stop: 11/09/19 18:00 Tropicamide (Mydriacyl 1% Ophth Soln) 0 ml EYERT ASDIRECTED ASIF Stop: 11/09/19 18:00
[2019-11-09] MEDS: Tetracaine HCl/PF 0.5% 4 ML Bottle EYEBOTH SCH ×2 (11:22→11:34)
--- NOTE | 2019-11-09 11:54 | PCM48HPAN ---
Post Anesthesia Note - EVALUATION WITHIN 48HRS OF ANESTHETIC Vital Signs in Normal Range: Yes Patient Participated in Evaluation: Yes Respiratory Function Stable: Yes Airway Patent: Yes Cardiovascular Function Stable: Yes Hydration Status Stable: Yes Pain Control Satisfactory: Yes Nausea and Vomiting Control Satisfactory: Yes Mental Status Recovered: Yes Vital Signs: 148/88, HR 73, RR 20 SpO2 98%, T: 97Last Vital Signs
== END 2019-11-09 12:00 | disposition home or self-care (01) ==
LOC: JD.SDS 09:27
PROVIDERS: ATTEND Ophthalmology
DX: H25.813 Combined forms of age-related cataract, bilateral (principal); H01.02B Squamous blepharitis left eye, upper and lower eyelids; H01.02A Squamous blepharitis right eye, upper and lower eyelids; H16.103 Unspecified superficial keratitis, bilateral; H16.223 Keratoconjunctivitis sicca, not specified as Sjogren's, bilateral; H02.831 Dermatochalasis of right upper eyelid; H02.834 Dermatochalasis of left upper eyelid; I10 Essential (primary) hypertension; Z88.1 Allergy status to other antibiotic agents; Z79.899 Other long term (current) drug therapy
CPT/HCPCS: 66984; C1780; J0697; J2001

== ENCOUNTER 2019-12-07 07:58 | Day surgery (SDC) | payer MEDICARE, BC ==
[2019-12-07] MEDS: Polymyxin B/Trimethoprim 10 ML Bottle EYELF SCH ×4 (08:10→10:12)
[2019-12-07] MEDS: Brimonidine 0.2% Ophth Soln 5 ML Bottle EYELF SCH ×4 (08:15→10:12)
[2019-12-07] MEDS: Phenylephrine 2.5% Ophth Soln 2 ML Bot EYELF SCH ×6 (08:20→09:51)
--- NOTE | 2019-12-07 08:21 | PCM.PREANE ---
Preanesthetic Assessment - Anesthesia/Transfusion/Family Hx Anesthesia History: Prior Anesthesia Reaction Transfusion History: Prior Transfusion Without Reaction Intubation History: Unknown - Review of Systems General: No Symptoms Pulmonary: No Symptoms Cardiovascular: No Symptoms Gastrointestinal: No Symptoms Neurological: No Symptoms Other: Reports: None - Physical Assessment NPO Status Date: 12/06/19 NPO Status Time: 21:30 Vital Signs: Last Vital Signs Temp 98.2 F 12/07/19 08:00 Pulse 77 12/07/19 08:00 Resp 16 12/07/19 08:00 BP 138/81 12/07/19 08:00 Pulse Ox 93 L 12/07/19 08:00 Height: 1.63 m Weight: 58.06 kg ASA Class: 2 Mental Status: Alert & Oriented x3 Airway Class: Mallampati = 2 Dentition: Reports: Normal Dentition (age appropriate) Thyro-Mental Finger Breadths: 3 Mouth Opening Finger Breadths: 3 ROM/Head Extension: Full Lungs: Clear to Auscultation, Normal Respiratory Effort Cardiovascular: Regular Rate, Regular Rhythm - Allergies Allergies/Adverse Reactions: Allergies Allergy/AdvReac Type Severity Reaction Status Date / Time erythromycin base Allergy Cannot Verified 11/09/19 11:07 Remember - Acknowledgements Anesthesia Type Planned: MAC Pt an Appropriate Candidate for the Planned Anesthesia: Yes Alternatives and Risks of Anesthesia Discussed w Pt/Guardian: Yes Pt/Guardian Understands and Agrees with Anesthesia Plan: Yes PreAnesthesia Questionnaire HEENT History: Reports: Cataract (rt cataract done October 2019), Sinusitis Cardiovascular History: Reports: Afib (paroxysmal), Hypertension Gastrointestinal History: Reports: Other (See Below) (constipation) 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: Psychiatric History: Reports: Anxiety Endocrine/Metabolic History: Reports: Other (See Below) (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 - Past Surgical History HEENT Surgical History: Reports: Oral Surgery (2 wisdom teeth extracted), Other (See Below) (Excisioni of right branchial cleft cyst) GI Surgical History: Reports: Cholecystectomy (around 2005) Female Surgical History: Reports: D&C (x 1), Hysterectomy (partial) - HOME MEDS Home Medications: Home Meds Spironolactone [Aldactone] 25 mg PO DAILY 02/02/18 [History] dilTIAZem HCL [Cartia Xt] 120 mg PO DAILY 02/02/18 [History] Glucosam/Chond-Msm1/C/Mike/Bor [Wcagavq-Nbkxp-CSZ Complex Cplt] 1 tab PO DAILY 11/08/19 [History] - CURRENT (IN HOUSE) MEDS Current Meds: Current Medications Brimonidine Tartrate (Alphagan 0.2% Ophth Soln) 0 ml EYELF ASDIRECTED ASIF Stop: 12/07/19 18:00 Cefuroxime Sodium (Zinacef) 0 mg EYELF ASDIRECTED ASIF Stop: 12/07/19 18:00 Lidocaine HCl (Xylocaine-Mpf 1%) 0 ml INJECT ASDIRECTED ASIF Stop: 12/07/19 18:00 Phenylephrine HCl (Ángel-Synephrine 2.5% Ophth Soln) 0 ml EYELF ASDIRECTED ASIF Stop: 12/07/19 18:00 Pilocarpine HCl (Pilocar 4% Ophth Soln) 0 ml EYELF ASDIRECTED ASIF Stop: 12/07/19 18:00 Polymyxin/Trimethoprim Sulfate (Polytrim Ophth Soln) 0 ml EYELF ASDIRECTED ASIF Stop: 12/07/19 18:00 Last Admin: 12/07/19 08:10 Dose: 1 drop Documented by: Tetracaine HCl (Tetracaine 0.5% Steri-Unit Miryam) 0 ml EYEBOTH ASDIRECTED ASIF Stop: 12/07/19 18:00 Tropicamide (Mydriacyl 1% Ophth Soln) 0 ml EYELF ASDIRECTED ASIF Stop: 12/07/19 18:00
[2019-12-07] MEDS: Tropicamide 1% Ophth Soln 15 ML Bottle EYELF SCH ×4 (08:26→09:05)
[2019-12-07] MEDS: Tetracaine HCl/PF 0.5% 4 ML Bottle EYEBOTH SCH ×6 (09:07→09:58)
[2019-12-07] MEDS: Cefuroxime 10 MG/ML SYRINGE EYELF SCH ×2 (09:35→10:11)
[2019-12-07] MEDS: Lidocaine 1% PF 2 ML SDV INJECT SCH ×2 (09:35→09:58)
[2019-12-07] MEDS: Pilocarpine 4% Ophth Soln 15 ML Bot EYELF SCH ×2 (09:36→10:12)
--- NOTE | 2019-12-07 10:14 | PCM48HPAN ---
Post Anesthesia Note - EVALUATION WITHIN 48HRS OF ANESTHETIC Vital Signs in Normal Range: Yes Patient Participated in Evaluation: Yes Respiratory Function Stable: Yes Airway Patent: Yes Cardiovascular Function Stable: Yes Hydration Status Stable: Yes Pain Control Satisfactory: Yes Nausea and Vomiting Control Satisfactory: Yes Mental Status Recovered: Yes Vital Signs: Last Vital Signs Temp 36.8 C 12/07/19 08:00 Pulse 77 12/07/19 08:00 Resp 16 12/07/19 08:00 BP 138/81 12/07/19 08:00 Pulse Ox 93 L 12/07/19 08:00
== END 2019-12-07 10:21 | disposition home or self-care (01) ==
LOC: JD.SDS 07:58
PROVIDERS: ATTEND Ophthalmology
DX: H25.812 Combined forms of age-related cataract, left eye (principal); H16.103 Unspecified superficial keratitis, bilateral; H02.831 Dermatochalasis of right upper eyelid; H02.834 Dermatochalasis of left upper eyelid; H11.153 Pinguecula, bilateral; I10 Essential (primary) hypertension; F41.9 Anxiety disorder, unspecified; Z96.1 Presence of intraocular lens; Z88.1 Allergy status to other antibiotic agents; Z79.899 Other long term (current) drug therapy
CPT/HCPCS: 66984; J0697; J2001; C1780

== ENCOUNTER 2020-04-01 12:41 | Emergency (ER) | payer MEDICARE, BC ==
[2020-04-01] MEDS ORDERED: Sodium Chloride 0.9% 10 ML Syringe FLUSH PRN (13:18)
[2020-04-01] MEDS ORDERED: Metoclopramide 10 MG/2 ML SDV IVPUSH ONE (13:18)
[2020-04-01] MEDS ORDERED: Sodium Chloride 0.9% 1,000 ML IV ONE (13:18)
--- NOTE | 2020-04-01 13:24 | EDM.PDOC ---
ED HPI GENERAL MEDICAL PROBLEM - General Chief Complaint: Gastrointestinal Problem Stated Complaint: COVID +/DIARRHEA /NAUSEA Time Seen by Provider: 04/01/20 12:47 Source of Information: Reports: Patient, RN Notes Reviewed History Limitations: Reports: No Limitations - History of Present Illness INITIAL COMMENTS - FREE TEXT/NARRATIVE: Patient is an 79-year-old female who presents to the ED for the evaluation of her diarrhea and nausea. Patient was diagnosed with Covid on Friday, and states she has been having symptoms since March 24. She notes that she has been extra careful about staying home, but she does account making 2 possible trips to [facility] that may have put her at risk. Patient notes she has not had any fevers or chills at home, and she is not developed any cough or shortness of breath, but she is having extreme nausea and diarrhea. She notes that her stools have become quite loose over the past day or 2. She is having a few stools per day, she is having no vomiting. She is having some muscle aches in her upper back that are somewhat bothersome and a slight dull headache other than this she is feeling okay. She notes that she has normal issues with constipation, so she is not surprised that she is having GI issues with this. She states that she has not had much of an appetite and has not been eating or drinking a whole lot either. Abdominal Pain Score (Numeric/FACES): 8 - Related Data Allergies Allergy/AdvReac Type Severity Reaction Status Date / Time erythromycin base Allergy Cannot Verified 04/01/20 13:02 Remember Home Meds: Home Meds Spironolactone [Aldactone] 25 mg PO DAILY 02/02/18 [History] dilTIAZem HCL [Cartia Xt] 120 mg PO DAILY 02/02/18 [History] Glucosam/Chond-Msm1/C/Mike/Bor [Oqajtph-Krjrq-WAG Complex Cplt] 1 tab PO DAILY 11/08/19 [History] Metoclopramide [Reglan] 10 mg PO QID PRN #20 cup 04/01/20 [Rx] Past Medical History HEENT History: Reports: Cataract (rt cataract done October 2019), Sinusitis Cardiovascular History: Reports: Afib (paroxysmal), Hypertension Gastrointestinal History: Reports: Other (See Below) (constipation) 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: Psychiatric History: Reports: Anxiety Endocrine/Metabolic History: Reports: Other (See Below) (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 - Past Surgical History HEENT Surgical History: Reports: Oral Surgery (2 wisdom teeth extracted), Other (See Below) (Excisioni of right branchial cleft cyst) GI Surgical History: Reports: Cholecystectomy (around 2005) Female Surgical History: Reports: D&C (x 1), Hysterectomy (partial) Social & Family History - Family History Family Medical History: No Pertinent Family History - Caffeine Use Caffeine Use: Reports: None - Living Situation & Occupation Living situation: Reports: , with Spouse Occupation: Retired ED ROS GENERAL - Review of Systems Review Of Systems: Comprehensive ROS is negative, except as noted in HPI. ED EXAM, GI/ABD - Physical Exam Exam: See Below Exam Limited By: No Limitations General Appearance: Alert, WD/WN, No Apparent Distress Respiratory/Chest: No Respiratory Distress, Lungs Clear, Normal Breath Sounds, No Accessory Muscle Use, Chest Non-Tender Cardiovascular: Normal Peripheral Pulses, Regular Rate, Rhythm, No Murmur GI/Abdominal Exam: Normal Bowel Sounds, Soft, Non-Tender, No Distention, No Mass Neurological: Alert, Oriented, Normal Cognition, No Motor/Sensory Deficits Psychiatric: Normal Affect, Normal Mood Skin Exam: Warm, Dry, Intact, Normal Color, No Rash Course - Vital Signs Last Recorded V/S: Last Vital Signs Temp 98.3 F 04/01/20 12:53 Pulse 85 04/01/20 12:53 Resp 16 04/01/20 12:53 BP 150/79 H 04/01/20 12:53 Pulse Ox 97 04/01/20 12:53 - Orders/Labs/Meds Orders: Active Orders 24 hr Category Date Time Status Peripheral IV Care [RC] . DIRECTED Care 04/01/20 13:18 Active Sodium Chloride 0.9% [Saline Flush] Med 04/01/20 13:18 Active 10 ml FLUSH ASDIRECTED PRN Peripheral IV Insertion Adult [OM.PC] Routine Oth 04/01/20 13:18 Ordered Medication Orders Sodium Chloride (Saline Flush) 10 ml FLUSH ASDIRECTED PRN PRN Reason: Keep Vein Open Last Admin: 04/01/20 13:27 Dose: 10 ml Documented by: BENJAMIN Labs: Laboratory Tests 04/01/20 04/01/20 Range/Units 13:29 13:29 WBC 4.62 (3.98-10.04) K/mm3 RBC 4.80 (3.98-5.22) M/mm3 Hgb 14.0 (11.2-15.7) gm/dl Hct 43.3 (34.1-44.9) % MCV 90.2 (79.4-94.8) fl MCH 29.2 (25.6-32.2) pg MCHC 32.3 (32.2-35.5) g/dl RDW Std Deviation 42.9 (36.4-46.3) fL Plt Count 287 (182-369) K/mm3 MPV 9.8 (9.4-12.3) fl Neut % (Auto) 70.4 (34.0-71.1) % Lymph % (Auto) 16.5 L (19.3-51.7) % Holmes % (Auto) 12.3 (4.7-12.5) % Eos % (Auto) 0.4 L (0.7-5.8) Baso % (Auto) 0.2 (0.1-1.2) % Neut # (Auto) 3.25 (1.56-6.13) K/mm3 Lymph # (Auto) 0.76 L (1.18-3.74) K/mm3 Holmes # (Auto) 0.57 H (0.24-0.36) K/mm3 Eos # (Auto) 0.02 L (0.04-0.36) K/mm3 Baso # (Auto) 0.01 (0.01-0.08) K/mm3 Sodium 130 L (136-145) mEq/L Potassium 4.0 (3.5-5.1) mEq/L Chloride 96 L (98-107) mEq/L Carbon Dioxide 26 (21-32) mEq/L Anion Gap 12.0 (5-15) BUN 8 (7-18) mg/dL Creatinine 1.1 H (0.55-1.02) mg/dL Est Cr Clr Drug Dosing 33.74 mL/min Estimated GFR (MDRD) 48 (>60) mL/min BUN/Creatinine Ratio 7.3 L (14-18) Glucose 129 H (83-115) mg/dL Calcium 9.1 (8.5-10.1) mg/dL Magnesium 1.8 (1.8-2.4) mg/dl Total Bilirubin 0.6 (0.2-1.0) mg/dL AST 45 H (15-37) U/L ALT 71 H (14-59) U/L Alkaline Phosphatase 51 (46-116) U/L Total Protein 7.5 (6.4-8.2) g/dl Albumin 3.6 (3.4-5.0) g/dl Globulin 3.9 gm/dL Albumin/Globulin Ratio 0.9 L (1-2) Meds: Medications Generic Name Dose Route Start Last Admin Trade Name Freq PRN Reason Stop Dose Admin Sodium Chloride 10 ml 04/01/20 13:18 04/01/20 13:27 Saline Flush FLUSH 10 ml ASDIRECTED PRN Administration Keep Vein Open Discontinued Medications Generic Name Dose Route Start Last Admin Trade Name Freq PRN Reason Stop Dose Admin Sodium Chloride 1,000 mls @ 500 mls/hr 04/01/20 13:18 04/01/20 13:27 Normal Saline IV 04/01/20 15:17 500 mls/hr ONETIME ONE Administration Metoclopramide HCl 5 mg 04/01/20 13:18 04/01/20 13:27 Reglan IVPUSH 04/01/20 13:19 5 mg ONETIME ONE Administration - Re-Assessments/Exams Free Text/Narrative Re-Assessment/Exam: 04/01/20 13:23 Patient presents to the ED for her ongoing nausea and diarrhea with a Covid 19+ diagnosis. We will get her some IV fluids, 5 mg of Reglan for GI discomfort. And check some baseline labs. 04/01/20 15:34 Patient's sodium was mildly low, the fluid should help this. Patient was able to eat some Jell-O crackers and some water while being here, she still states she feels like she has somewhat of a knot in her stomach. But her nausea is better. We will try to discharge her home with general conservative recommendations. I do believe a portion of this is related to anxiety. Departure - Departure Time of Disposition: 15:35 Disposition: Home, Self-Care 01 Condition: Good Clinical Impression: Nausea, Diarrhea due to COVID-19 - Discharge Information *PRESCRIPTION DRUG MONITORING PROGRAM REVIEWED*: No *COPY OF PRESCRIPTION DRUG MONITORING REPORT IN PATIENT STEWART: No Prescriptions: Metoclopramide [Reglan] 10 mg PO QID PRN #20 cup PRN Reason: Nausea Instructions: Dehydration, Adult, [id number] Referrals: Sukumar Varma MD [Primary Care Provider] - Forms: ED Department Discharge Additional Instructions: You were seen in the ER today for your nausea and diarrhea with a diagnosis of COVID-19. Your oxygen levels were great at 97-98% on room air. Please try to increase your oral fluid intake, and eat multiple small meals throughout the day, to keep yourself healthy. You need to keep yourself nourished in order to fight off this disease. You can try a liquid diet like gatorade/powerade as well to get your electrolytes. You may take 500 mg Tylenol every hours 6 hours for pain/fever relief. Do not exceed 4000 mg Tylenol in a 24-hour time span. However, running a fever is your body's natural response to illness, and it allows the body to develop antibodies to disease, we are recommending trying to limit the use of Tylenol as much as possible to allow your body's natural immune response. You were given antinausea medications, please use 1 dose up to 4 times a day as needed for nausea purposes. Please be assured that you should be feeling better within a few days, from what we are seeing with this disease, the day 7 to 10-day range is usually the worst that people are feeling. Sepsis Event Note (ED) - Evaluation Sepsis Screening Result: No Definite Risk - Focused Exam Vital Signs: Vital Signs Temp Pulse Resp BP Pulse Ox 04/01/20 12:53 98.3 F 85 16 150/79 H 97 - My Orders Last 24 Hours: My Active Orders 04/01/20 13:18 Peripheral IV Care [RC] . DIRECTED Sodium Chloride 0.9% [Saline Flush] 10 ml FLUSH ASDIRECTED PRN Peripheral IV Insertion Adult [OM.PC] Routine - Assessment/Plan Last 24 Hours: My Active Orders 04/01/20 13:18 Peripheral IV Care [RC] . DIRECTED Sodium Chloride 0.9% [Saline Flush] 10 ml FLUSH ASDIRECTED PRN Peripheral IV Insertion Adult [OM.PC] Routine
== END 2020-04-01 15:56 | disposition home or self-care (01) ==
LOC: JD.ED 12:41
DX: U07.1 COVID-19 (principal); I48.91 Unspecified atrial fibrillation; I10 Essential (primary) hypertension; Z79.899 Other long term (current) drug therapy; Z88.1 Allergy status to other antibiotic agents
CPT/HCPCS: 36415; 80053; 83735; 85025; 96374; 99284; J2765; J7030

== ENCOUNTER 2020-09-12 08:36 | Day surgery (SDC) | payer MEDICARE, OTHER ==
[~2020-09-12 08:36] MED LIST changes: -Cefuroxime 10 MG/ML SYRINGE EYERT SCH; +Lactated Ringers 1,000 ML IV SCH; -Lidocaine 1% PF 2 ML SDV INJECT SCH; +Lidocaine 1%/Sod Bicarbonate in NS 8.4% 1 ML Syringe IDERM PRN; -Pilocarpine 4% Ophth Soln 15 ML Bot EYERT SCH; +Sodium Chloride 0.9% 10 ML Syringe FLUSH PRN
[2020-09-12] MEDS ORDERED: Scopolamine 1.5 MG Transdermal Patch TOP ONE (08:50)
[2020-09-12] MEDS ORDERED: Lactated Ringers 1,000 ML ONE (09:21)
[2020-09-12] MEDS ORDERED: ceFAZolin 1 GM Vial ONE (09:21)
[2020-09-12] MEDS ORDERED: Propofol 200 MG/20 ML SDV ONE ×2 (09:21→09:25)
[2020-09-12] MEDS ORDERED: Ondansetron 4 MG/2 ML SDV ONE (09:21)
[2020-09-12] MEDS ORDERED: Dexamethasone 4 MG/ML 5 ML MDV ONE (09:21)
[2020-09-12] MEDS ORDERED: Lidocaine 1% 4 ML ONE (09:21)
[2020-09-12] MEDS ORDERED: fentaNYL 250 MCG/5 ML SDV ONE (09:22)
[2020-09-12] MEDS ORDERED: Midazolam 1 MG/ML 2 ML SDV ONE (09:22)
[2020-09-12] MEDS ORDERED: Ketorolac 15 MG/ML SDV ONE (09:28)
[2020-09-12] MEDS ORDERED: Famotidine 20 MG/2 ML SDV IVPUSH ONE (09:36)
--- NOTE | 2020-09-12 09:48 | PCM.PREANE ---
Preanesthetic Assessment - Procedure Proposed Procedure: Colpocloisis - Anesthesia/Transfusion/Family Hx Anesthesia History: Prior Anesthesia Reaction Type of Anesthesia Reaction: Excessive Nausea/Vomiting Family History of Anesthesia Reaction: No Transfusion History: Prior Transfusion Without Reaction Intubation History: Unknown - Review of Systems General: No Symptoms Pulmonary: No Symptoms Cardiovascular: Other (Hypertension, History of AFib with palpatations, controlled with medication. ) Gastrointestinal: Other (Heart burn last evening. ) Neurological: Pre-Existing Deficit (Back pain with Sciatica bilateral legs) Other: Reports: None (Overactive adrenal gland, Conns Syndrome. ), Anxiety - Physical Assessment NPO Status Date: 09/11/20 NPO Status Time: 21:30 Weight: 57 kg Mental Status: Alert & Oriented x3 Airway Class: Mallampati = 3 Dentition: Reports: Caries Thyro-Mental Finger Breadths: 1 Mouth Opening Finger Breadths: 3 ROM/Head Extension: Full Lungs: Clear to Auscultation, Normal Respiratory Effort Cardiovascular: Regular Rate, Regular Rhythm - Imaging/EKG Impressions: SR at 73 bpm, consider atrial enlargement. - Allergies Allergies/Adverse Reactions: Allergies Allergy/AdvReac Type Severity Reaction Status Date / Time erythromycin base Allergy Cannot Verified 09/12/20 09:06 Remember - Blood Blood Available: No Product(s) Available: None - Anesthesia Plan Pre-Op Medication Ordered: Anxiolytic, Other (Scopalamine Patch, Famotadine. ) - Acknowledgements Anesthesia Type Planned: General Anesthesia Pt an Appropriate Candidate for the Planned Anesthesia: Yes Alternatives and Risks of Anesthesia Discussed w Pt/Guardian: Yes Pt/Guardian Understands and Agrees with Anesthesia Plan: Yes PreAnesthesia Questionnaire HEENT History: Reports: Cataract, Sinusitis Cardiovascular History: Reports: Afib, Hypertension, Other (See Below) Other Cardiovascular History: varicose vein Respiratory History: Reports: None Gastrointestinal History: Reports: Other (See Below) Other Gastrointestinal History: post op nausea and vomiting Genitourinary History: Reports: Other (See Below) Other Genitourinary History: cystocele III, pelvic organ prolapse, rectocele, vaginal atrophy 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: Musculoskeletal History: Reports: Back Pain, Chronic Neurological History: Reports: None Psychiatric History: Reports: Anxiety Endocrine/Metabolic History: Reports: Osteopenia, Other (See Below) Other Endocrine/Metabolic History: overactive adrenal gland Hematologic History: Reports: None Immunologic History: Reports: None Oncologic (Cancer) History: Reports: Basal Cell Carcinoma Dermatologic History: Reports: Other (See Below) Other Dermatologic History: right brachial cleft cyst removal, BCC with removal, mole removal - Infectious Disease History Infectious Disease History: Reports: None - Past Surgical History Head Surgeries/Procedures: Reports: None HEENT Surgical History: Reports: Cataract Surgery, Oral Surgery, Other (See Below) Cardiovascular Surgical History: Reports: None Respiratory Surgical History: Reports: None GI Surgical History: Reports: Cholecystectomy Female Surgical History: Reports: D&C, Hysterectomy, Oophorectomy Male Surgical History: Reports: None Endocrine Surgical History: Reports: None Neurological Surgical History: Reports: None Musculoskeletal Surgical History: Reports: None Oncologic Surgical History: Reports: None - SUBSTANCE USE Tobacco Use Status *Q: Never Tobacco User Recreational Drug Use History: No - HOME MEDS Home Medications: Home Meds Spironolactone [Aldactone] 25 mg PO DAILY 02/02/18 [History] dilTIAZem HCL [Cartia Xt] 120 mg PO DAILY 02/02/18 [History] Acetaminophen [Tylenol] 650 mg PO Q4H PRN 09/11/20 [History] Elderberry Fruit and Flower [Black Elderberry 575 mg Cap] 1 cap PO DAILY 09/11/20 [History] LORazepam [Ativan] 0.5 mg PO BID PRN 09/11/20 [History] Magnesium 250 mg PO DAILY 09/11/20 [History] Multivitamin 1 tab PO DAILY 09/11/20 [History] Zinc 50 mg PO DAILY 09/11/20 [History] - CURRENT (IN HOUSE) MEDS Current Meds: Current Medications Famotidine (Famotidine 20 Mg/2 Ml Sdv) 20 mg IVPUSH ONETIME ONE Stop: 09/12/20 09:37 Lactated Ringer's (Ringers, Lactated) 1,000 mls @ 125 mls/hr IV ASDIRECTED ASIF Stop: 09/12/20 23:00 Last Admin: 09/12/20 08:50 Dose: 125 mls/hr Documented by: Lidocaine/Sodium Bicarbonate (Lidocaine 1%/Sod Bicarbonate In Ns 8.4% 1 Ml Syringe) 0.25 ml IDERM ONETIME PRN PRN Reason: Prior to IV Start Stop: 09/12/20 18:00 Last Admin: 09/12/20 08:50 Dose: 0.25 ml Documented by: Sodium Chloride (Sodium Chloride 0.9% 10 Ml Syringe) 10 ml FLUSH ASDIRECTED PRN PRN Reason: Keep Vein Open Stop: 09/12/20 18:00 Discontinued Medications Cefazolin Sodium (Cefazolin 1 Gm Vial) Confirm Administered Dose 2 gm .ROUTE .STK-MED ONE Stop: 09/12/20 09:22 Dexamethasone (Dexamethasone 4 Mg/Ml 5 Ml Mdv) Confirm Administered Dose 20 mg .ROUTE .STK-MED ONE Stop: 09/12/20 09:22 Fentanyl (Fentanyl 250 Mcg/5 Ml Sdv) Confirm Administered Dose 250 mcg .ROUTE .STK-MED ONE Stop: 09/12/20 09:23 Lidocaine HCl (Xylocaine-Mpf 1%) Confirm Administered Dose 4 mls @ as directed .ROUTE .STK-MED ONE Stop: 09/12/20 09:22 Lactated Ringer's (Ringers, Lactated) Confirm Administered Dose 1,000 mls @ as directed .ROUTE .STK-MED ONE Stop: 09/12/20 09:22 Ketorolac Tromethamine (Ketorolac 15 Mg/Ml Sdv) Confirm Administered Dose 15 mg .ROUTE .STK-MED ONE Stop: 09/12/20 09:29 Midazolam HCl (Midazolam 1 Mg/Ml 2 Ml Sdv) Confirm Administered Dose 2 mg .ROUTE .STK-MED ONE Stop: 09/12/20 09:23 Ondansetron HCl (Ondansetron 4 Mg/2 Ml Sdv) Confirm Administered Dose 4 mg .ROUTE .STK-MED ONE Stop: 09/12/20 09:22 Propofol (Propofol 200 Mg/20 Ml Sdv) Confirm Administered Dose 400 mg .ROUTE .STK-MED ONE Stop: 09/12/20 09:22 Propofol (Propofol 200 Mg/20 Ml Sdv) Confirm Administered Dose 400 mg .ROUTE .STK-MED ONE Stop: 09/12/20 09:26 Scopolamine (Scopolamine 1.5 Mg Transdermal Patch) 1.5 mg TOP ONETIME ONE Stop: 09/12/20 08:51 Last Admin: 09/12/20 09:02 Dose: 1.5 mg Documented by:
[2020-09-12] MEDS ORDERED: Succinylcholine/Sod PF 100 MG/5 ML SYRINGE IV ONE (10:26)
[2020-09-12] MEDS ORDERED: Sodium Chloride 0.9% 50 ML SDV ONE (10:31)
[2020-09-12] MEDS ORDERED: Lidocaine 1% with EPINEPHrine 1:100,000 10 ML MDV ONE (10:31)
[2020-09-12] MEDS ORDERED: fentaNYL 100 MCG/2 ML SDV IVPUSH PRN (11:24)
[2020-09-12] MEDS ORDERED: Ondansetron 4 MG/2 ML SDV IVPUSH PRN ×2 (11:24→11:54)
--- NOTE | 2020-09-12 12:04 | PCM.OPNOTE ---
- General Post-Op/Procedure Note Date of Surgery/Procedure: 09/12/20 Operative Procedure(s): Colopocleisis Findings: Grade 3 vaginal eversion/descensus. Cystocele, rectocele Pre Op Diagnosis: Grade 3 vaginal prolapse, cystocele, rectocele Post-Op Diagnosis: Same Anesthesia Technique: General ET Tube Other Anesthesia Type: Lidocaine quarter percent with epinephrineapproximately 15 cc totallocal Primary Surgeon: Brett Orourke Secondary Surgeon: Yony Castro Anesthesia Provider: Che Lockwood Reason Sound Controller Was Necessary: Retraction, assistance, patient safety, quality of care Fluid Replacement, Intraop: 1,300 Output, Urine Amount: 5 EBL in mLs: 10 Complications: None Condition: Good Free Text/Narrative:: Surgery duration: 45 minutes The patient is taken into the operating room and placed in a supine position on the operating table. She was previously consented in appropriate fashion for this procedure. He was administered 2 g of Ancef IV for infection prophylaxis and had sequential compression stockings in place for DVT prophylaxis. She was administered general endotracheal anesthesia. After adequate administration of anesthesia patient was placed in a dorsal lithotomy position, prepped and draped in the usual fashion for this procedure. Her bladder was emptied prior to starting the procedure. Exam under anesthesia showed a grade 2 cystocele, grade 2 rectocele and grade 3 vaginal vault inversion descending to 4 cm outside the vaginal introitus. The epithelium was found to be somewhat cornified as would be consistent with chronic external exposure. The opening of the vagina was dilated enough to 3 fingerbreadths into the vagina. Patient is status post hysterectomy. The endovaginal cuff/dimple was outside the vagina. This was grasped with 2 Allis clamps. The epithelium was then infiltrated with lidocaine quarter percent with epinephrine, approximately 15 mL in this area. The epithelium was then denuded from the inverted vagina. This was done with blunt and sharp dissection. A small opening was made into the peritoneal cavity. There appeared be no bowel in this area. This was closed with a suture of 0 Monocryl. After the epithelium was removed the pursestring sutures were placed around the inverted denuded vagina. Approximately 6 pursestrings of 0 Monocryl were placed and each one was tagged. After all of the and place they were then tied down starting with the outermost 1 and inverting the vagina has they were consecutively tied. This reduced the vaginal inversion. The epithelium was then closed with a short running suture of 3-0 Monocryl. This brought the descensus back to about the position just above the hymeneal ring. Patient was awakened from general endotracheal anesthesia and left the operating room in good condition.
--- NOTE | 2020-09-12 12:38 | PCM.POSTAN ---
POST ANESTHESIA ASSESSMENT - MENTAL STATUS Mental Status: Oriented, Other (Drowsy) - VITAL SIGNS Vital Signs: Last Vital Signs Temp 36.4 C 09/12/20 12:30 Pulse 78 09/12/20 12:30 Resp 12 09/12/20 12:30 BP 142/75 H 09/12/20 12:30 Pulse Ox 98 09/12/20 12:34 - RESPIRATORY Respiratory Status: Respiratory Rate WNL, Airway Patent, O2 Saturation Stable, Supplemental Oxygen - CARDIOVASCULAR CV Status: Pulse Rate WNL, Blood Pressure Stable - GASTROINTESTINAL GI Status: No Symptoms - PAIN Pain Score: 0 - POST OP HYDRATION Hydration Status: Adequate & Stable
[2020-09-12] MEDS ORDERED: Acetaminophen 325 MG Tab PO PRN (14:37)
--- NOTE | 2020-09-12 14:41 | PCM48HPAN ---
Post Anesthesia Note - EVALUATION WITHIN 48HRS OF ANESTHETIC Vital Signs in Normal Range: Yes Patient Participated in Evaluation: Yes Respiratory Function Stable: Yes Airway Patent: Yes Cardiovascular Function Stable: Yes Hydration Status Stable: Yes Pain Control Satisfactory: Yes Nausea and Vomiting Control Satisfactory: Yes Mental Status Recovered: Yes Vital Signs: Last Vital Signs Temp 37.0 C 09/12/20 13:30 Pulse 83 09/12/20 14:00 Resp 14 09/12/20 14:00 BP 114/71 09/12/20 14:00 Pulse Ox 95 09/12/20 14:00 - COMMENTS/OBSERVATIONS Free Text/Narrative:: Shereen is doing well. She denies nausea and has mild discomfort. No further questions or concerns at this time.
[2020-09-12] MEDS ORDERED: Ketorolac 30 MG/ML SDV IVPUSH ONE (16:00)
[2020-09-12] MEDS ORDERED: Ibuprofen 400 MG Tab PO PRN (22:00)
== END 2020-09-12 15:16 | disposition home or self-care (01) ==
LOC: JD.SDS 08:36
PROVIDERS: ATTEND Obstetrics & Gynecology
DX: N81.3 Complete uterovaginal prolapse (principal); N81.6 Rectocele; N95.2 Postmenopausal atrophic vaginitis; I48.91 Unspecified atrial fibrillation; I10 Essential (primary) hypertension; Z79.899 Other long term (current) drug therapy; Z88.8 Allergy status to other drugs, medicaments and biological substances; Z90.49 Acquired absence of other specified parts of digestive tract; Z98.890 Other specified postprocedural states
CPT/HCPCS: 57120; A9270; J0330; J0690; J1100; J1885; J2250; J2405; J2704; J3010; J3490; J7120; 00942; 99100

== ENCOUNTER 2020-10-14 00:27 | Emergency (ER) | payer MEDICARE, OTHER ==
--- NOTE | 2020-10-14 02:12 | EDM.PDOC ---
ED HPI GENERAL MEDICAL PROBLEM - General Chief Complaint: Gastrointestinal Problem Stated Complaint: CONSTIPATION Time Seen by Provider: 10/14/20 00:53 Source of Information: Reports: Patient History Limitations: Reports: No Limitations - History of Present Illness INITIAL COMMENTS - FREE TEXT/NARRATIVE: The patient presents with constipation. About a month ago she had a rectocele and vaginal repair by Dr Orourke. Since the surgery she has had trouble having bowel movements. She took an extra dose of senna tonight and she did go a little. She feels uncomfortable and tried to go to [facility] to get a fleets enema but they were closed. She denies any fever, chills, cough, chest pain, shortness of breath, nausea or vomiting. Onset: Gradual Duration: Week(s): Location: Reports: Abdomen Quality: Reports: Other (cramp) Severity: Mild Improves with: Reports: None Worsens with: Reports: None Associated Symptoms: Reports: No Other Symptoms Abdomen Pain Score (Numeric/FACES): 4 - Related Data Allergies Allergy/AdvReac Type Severity Reaction Status Date / Time erythromycin base Allergy Cannot Verified 09/12/20 09:06 Remember Home Meds: Home Meds Spironolactone [Aldactone] 25 mg PO DAILY 02/02/18 [History] dilTIAZem HCL [Cartia Xt] 120 mg PO DAILY 02/02/18 [History] Acetaminophen [Tylenol] 650 mg PO Q4H PRN 09/11/20 [History] Elderberry Fruit and Flower [Black Elderberry 575 mg Cap] 1 cap PO DAILY 09/11/20 [History] LORazepam [Ativan] 0.5 mg PO BID PRN 09/11/20 [History] Magnesium 250 mg PO DAILY 09/11/20 [History] Multivitamin 1 tab PO DAILY 09/11/20 [History] Zinc 50 mg PO DAILY 09/11/20 [History] Ibuprofen [Motrin] 400 mg PO Q4H PRN tablet 09/12/20 [Rx] Past Medical History HEENT History: Reports: Cataract, Sinusitis Cardiovascular History: Reports: Afib, Hypertension, Other (See Below) Other Cardiovascular History: varicose vein Respiratory History: Reports: None Gastrointestinal History: Reports: Other (See Below) Other Gastrointestinal History: post op nausea and vomiting Genitourinary History: Reports: Other (See Below) Other Genitourinary History: cystocele III, pelvic organ prolapse, rectocele, vaginal atrophy RIVET TESTER History: Reports: Musculoskeletal History: Reports: Back Pain, Chronic Neurological History: Reports: None Psychiatric History: Reports: Anxiety Endocrine/Metabolic History: Reports: Osteopenia, Other (See Below) Other Endocrine/Metabolic History: overactive adrenal gland Hematologic History: Reports: None Immunologic History: Reports: None Oncologic (Cancer) History: Reports: Basal Cell Carcinoma Dermatologic History: Reports: Other (See Below) Other Dermatologic History: right brachial cleft cyst removal, BCC with removal, mole removal - Infectious Disease History Infectious Disease History: Reports: None - Past Surgical History Head Surgeries/Procedures: Reports: None HEENT Surgical History: Reports: Cataract Surgery, Oral Surgery, Other (See Below) Cardiovascular Surgical History: Reports: None Respiratory Surgical History: Reports: None GI Surgical History: Reports: Cholecystectomy Female Surgical History: Reports: D&C, Hysterectomy, Oophorectomy Endocrine Surgical History: Reports: None Neurological Surgical History: Reports: None Musculoskeletal Surgical History: Reports: None Oncologic Surgical History: Reports: None Social & Family History - Family History Family Medical History: No Pertinent Family History - Tobacco Use Tobacco Use Status *Q: Never Tobacco User - Caffeine Use Caffeine Use: Reports: None - Recreational Drug Use Recreational Drug Use: No - Living Situation & Occupation Living situation: Reports: , with Spouse Occupation: Retired ED ROS GENERAL - Review of Systems Review Of Systems: See Below Constitutional: Reports: No Symptoms HEENT: Reports: No Symptoms Respiratory: Reports: No Symptoms Cardiovascular: Reports: No Symptoms Endocrine: Reports: No Symptoms GI/Abdominal: Reports: Abdominal Pain, Constipation. Denies: Nausea, Vomiting : Reports: No Symptoms Musculoskeletal: Reports: No Symptoms ED EXAM, GI/ABD - Physical Exam Exam: See Below Exam Limited By: No Limitations General Appearance: Alert, No Apparent Distress Ears: Normal External Exam Nose: Normal Inspection Head: Atraumatic, Normocephalic Neck: Normal Inspection Respiratory/Chest: No Respiratory Distress, Lungs Clear, Normal Breath Sounds Cardiovascular: Regular Rate, Rhythm, No Edema, No Murmur GI/Abdominal Exam: Soft, No Organomegaly, No Mass, Tender (Mild tenderness) Back Exam: Normal Inspection Extremities: Normal Inspection Course - Vital Signs Last Recorded V/S: Last Vital Signs Temp 97.0 F 10/14/20 00:46 Pulse 77 10/14/20 00:46 Resp 20 10/14/20 00:46 BP 144/91 H 10/14/20 00:46 Pulse Ox 97 10/14/20 00:46 - Orders/Labs/Meds Orders: Active Orders 24 hr Category Date Time Status Enema [RC] ASDIRECTED Care 10/14/20 01:49 Active Abdomen 1V Upright [CR] Stat Exams 10/14/20 01:06 Taken - Re-Assessments/Exams Free Text/Narrative Re-Assessment/Exam: 10/14/20 02:12 I did an x-ray and there was some stool. I offered a fleets enema and she agreed. 10/14/20 02:16 She had good out put and she feels better. I will discharge her home. Departure - Departure Time of Disposition: 02:20 Disposition: Home, Self-Care 01 Condition: Good Clinical Impression: Constipation Qualifiers: Constipation type: other constipation type Qualified Code(s): K59.09 - Other constipation - Discharge Information *PRESCRIPTION DRUG MONITORING PROGRAM REVIEWED*: Not Applicable *COPY OF PRESCRIPTION DRUG MONITORING REPORT IN PATIENT [facility]: Not Applicable Referrals: Sukumar Varma MD [Primary Care Provider] - Forms: ED Department Discharge Additional Instructions: Follow up with Dr Orourke this week. Keep drinking plenty of water and take the Senna as directed. Please return if you are worse. Sepsis Event Note (ED) - Evaluation Sepsis Screening Result: No Definite Risk - Focused Exam Vital Signs: Vital Signs Temp Pulse Resp BP Pulse Ox 10/14/20 00:46 97.0 F 77 20 144/91 H 97 - My Orders Last 24 Hours: My Active Orders 10/14/20 01:06 Abdomen 1V Upright [CR] Stat 10/14/20 01:49 Enema [RC] ASDIRECTED - Assessment/Plan Last 24 Hours: My Active Orders 10/14/20 01:06 Abdomen 1V Upright [CR] Stat 10/14/20 01:49 Enema [RC] ASDIRECTED
--- NOTE | 2020-10-14 08:26 | CR ---
Abdomen: Upright view of the abdomen was obtained. Comparison: Previous CT abdomen and pelvis exam of 04/26/19; no prior abdominal radiograph is available. Bowel gas pattern appears normal. No abnormal amounts of stool are seen. No free air is seen. No abnormal calcifications or soft tissue abnormality is appreciated. Mild disc space narrowing and endplate spurring is seen at L3-4 within the spine. Impression: 1. Findings as noted above. Nothing acute is seen. Diagnostic code #2
== END 2020-10-14 02:29 | disposition home or self-care (01) ==
LOC: JD.ED 00:27
DX: K59.09 Other constipation (principal); I48.91 Unspecified atrial fibrillation; I10 Essential (primary) hypertension; Z88.1 Allergy status to other antibiotic agents; Z79.899 Other long term (current) drug therapy
CPT/HCPCS: 74018; 74018-26; 99283-25

== ENCOUNTER 2022-01-25 07:27 | Emergency (ER) | payer MEDICARE, OTHER ==
[2022-01-25 08:57] LABS: ESTIMATED GFR 56 mL/min (>60)
== END 2022-01-25 10:25 | disposition home or self-care (01) ==
LOC: JD.ED 07:27
DX: R42 Dizziness and giddiness (principal); I10 Essential (primary) hypertension; Z90.49 Acquired absence of other specified parts of digestive tract; Z90.710 Acquired absence of both cervix and uterus; Z88.5 Allergy status to narcotic agent
CPT/HCPCS: 36415; 70450; 70450-26; 71045; 71045-26; 80053; 84484; 85025; 85610; 85730; 93005; 99285